=== PATIENT | female | born 1960 | race African-American/Black ===

== ENCOUNTER 2021-05-01 15:45 | Emergency (ER) | payer MEDICAID ==
[~2021-05-01] VITALS: Ht 177.8 cm; Wt 100.0 kg
[2021-05-01 15:47] VITALS: BP 129/97
== END 2021-05-01 16:40 | disposition home or self-care (01) ==
LOC: ER 15:45
DX: F41.9 Anxiety disorder, unspecified (principal); G47.00 Insomnia, unspecified; Z98.890 Other specified postprocedural states
CPT/HCPCS: 99281